=== PATIENT | female | born 1985 ===

== ENCOUNTER 2016-11-10 19:20 | Emergency (ER) | payer OTHER ==
[2016-11-10] MEDS: Lactated Ringer's 1,000 ML IV SCH ×2 (20:03→21:00)
[2016-11-10 20:06] VITALS: TEMP 100.4
[2016-11-10 20:17] VITALS: BMI 32.9
--- NOTE | 2016-11-10 20:35 | OBHP ---
Datetime: 11/10/2016 19:54 IP Adm Impression: , intrauterine IP Admit Plan: Observation/Evaluation Admit Comment, IP Provider: Pt is a 31 yo [id number] edc 12/27 who presents with c/o pelvic pressure and b ack pain today. She states she has had a cough with yellow sputum for 3days and she has been taking robitussin dm prescribed by dr. stout. she denies head/sinus congestion. she denies ctxs, pprom , bleeding or decreased fm. she denies n/v or knowing she has a fever until presenttion to day. obhx: cd x2 nkda allergy: crab and lobster shx: denies etoh, tobaccco or drug use pmhx: denies medic: pnv; robistussin dm I: 33.2wks Fever uri P: IV hydration Tylenol u/a, cbc, cmp, ffn pt d/w dr. stout Pelvic Type - PN: Inadequate Extremities - PN: Normal Abdomen - PN: Normal Back - PN: Normal Lungs - PN: Normal Neurologic - PN: Normal HEENT - PN: Normal General - PN: Normal FHR - Baseline A Provider: 180 Membranes, Provider: Intact Contraction Comments Provider: q2-6min q3-6min Gestation - Est Wks by US: 33.2 EGA AdmitDate IP: 33.2 Vital Signs Provider: Reviewed IP Chief Complaint: Maternal discomfort NICHD Variability Prov Fetus A: Moderate 6-25bpm NICHD Accel Fetus A IP Provider: 15X15 FHR Category Provider Fetus A: Category I NICHD Decel Fetus A IP Provider: None Dilatation, Provider: 0 Effacement, Provider: 0 Station, Provider: -4 Genitourinary Exam: Normal
[2016-11-10 20:48] LABS: BASO % 0.2 % (0.0-2.0); EOS # 0.1 K/uL (0.0-0.7); EOS % 0.5 % (0.0-4.0); HEMATOCRIT 32.5 % (34.0-47.0); LYMPH % 6.9 % (20.0-40.0); MEAN CELL VOLUME 86.5 fl (81.0-99.0); MEAN CORPUSCULAR HEMOGLOBIN 27.3 pg (27.0-31.0); MEAN CORPUSCULAR HGB CONC 31.5 g/dL (33.0-37.0); MEAN PLATELET VOLUME 7.8 fl (7.2-11.7); MONO # 1.1 K/uL (0.0-0.8); MONO % 7.9 % (0.0-10.0); NEUT % 84.5 % (50.0-75.0); PLATELET COUNT 274 K/uL (130-400); RED CELL DISTRIBUTION WIDTH 14.6 % (11.5-14.5); WHITE BLOOD COUNT 14.3 K/uL (4.8-10.8)
[2016-11-10 20:59] LABS: ALB/GLOB RATIO 1.1 (1.0-2.1); ALKALINE PHOSPHATASE 130 U/L (38-126); ALT/SGPT 29 U/L (9-52); AST/SGOT 25 U/L (14-36); BILIRUBIN,TOTAL 0.5 mg/dl (0.2-1.3); BLOOD UREA NITROGEN 8 mg/dl (7-17); CALCIUM 9.5 mg/dL (8.4-10.2); CARBON DIOXIDE 20 mmol/L (22-30); CHLORIDE 101 mmol/L (98-107); GFR AFRICAN-AMERICAN > 60; GLUCOSE,RANDOM 86 mg/dL (65-105); POTASSIUM 3.6 MMOL/L (3.6-5.0); SODIUM 132 mmol/l (132-148); TOTAL PROTEIN 7.6 G/DL (6.3-8.2)
[2016-11-10] MEDS ORDERED: Lactated Ringer's 1,000 ML IV SCH (22:00)
[2016-11-10 22:11] LABS: RBC URINE 3 /hpf (0-3); URINE BACTERIA RARE (<OCC); URINE BILIRUBIN NEGATIVE (NEGATIVE); URINE BLOOD NEGATIVE (NEGATIVE); URINE COLOR YELLOW (YELLOW); URINE GLUCOSE (UA) NEG (Normal); URINE KETONE 80 mg/dL (NEGATIVE); URINE LEUKOCYTE ESTERASE NEG Leu/uL (Negative); URINE PROTEIN NEGATIVE (NEGATIVE); URINE UROBILINOGEN 0.2-1.0 mg/dL (0.2-1.0); WBC URINE 1 /hpf (0-5)
[2016-11-10 23:53] LABS: NEUTROPHIL 84 % (42-75); TOTAL CELLS COUNTED 100
[2016-11-11] MEDS ORDERED: cefTRIAXone (Rocephin) 1 gm Inj ONE (01:42)
== END 2016-11-10 23:45 | disposition still patient (30) ==
LOC: H.EROB2 19:20
DX: O26.93 Pregnancy related conditions, unspecified, third trimester (principal); J06.9 Acute upper respiratory infection, unspecified; R50.9 Fever, unspecified; Z3A.33 33 weeks gestation of pregnancy; Z87.59 Personal history of other complications of pregnancy, childbirth and the puerperium

== ENCOUNTER 2016-11-10 23:51 | Observation (INO) | payer OTHER ==
[2016-11-10 23:51] VITALS: BMI 32.9
[2016-11-11] MEDS ORDERED: Albuterol 0.083% Inhal Sol (2.5 mg/3 mL) UD INH STA (00:08)
[2016-11-11] MEDS ORDERED: Albuterol 0.083% Inhal Sol (2.5 mg/3 mL) UD ONE (00:18)
--- NOTE | 2016-11-11 01:41 | ED PDOC ---
HPI: CCC, URI, Sore Throat Time Seen by Provider: 11/11/16 00:02 Chief Complaint (Nursing): Abdominal Pain Chief Complaint (Provider): Abdominal Pain History Per: Patient History/Exam Limitations: no limitations Onset/Duration Of Symptoms: Days (x2 days) Current Symptoms Are (Timing): Still Present Additional Complaint(s): 31 y/o female with a past medical history of , about 33 weeks , presents to the emergency department with a complaint of a productive cough, sputum (yellow/green), congestion, fever, and shortness of breath x2 days. Associated with pelvic pressure. Patient was seen by OB ED, cleared, and sent down to ER for further evaluation of cough. Reports taking Tylenol for fever. Denies nausea and diarrhea. Past Medical History Reviewed: Historical Data, Nursing Documentation, Vital Signs Vital Signs: Last Vital Signs Temp 98.5 F 11/11/16 04:12 Pulse 107 H 11/11/16 04:12 Resp 20 11/11/16 04:12 BP 102/56 L 11/11/16 04:12 Pulse Ox 97 11/11/16 04:12 - Medical History PMH: No Chronic Diseases - Surgical History Surgical History: No Surg Hx - Family History Family History: States: Unknown Family Hx - Social History Current smoker - smoking cessation education provided: No Alcohol: None Drugs: Denies - Home Medications Home Medications: Ambulatory Orders Medication Instructions Recorded No Known Home Med 11/11/16 - Allergies Allergies/Adverse Reactions: Allergies Allergy/AdvReac Type Severity Reaction Status Date / Time crab Allergy ANAPHYLAXIS Verified 11/10/16 23:55 Review of Systems ROS Statement: Except As Marked, All Systems Reviewed And Found Negative Constitutional: Positive for: Fever ENT: Positive for: Nose Congestion Respiratory: Positive for: Cough, Shortness of Breath, Sputum (yellow/green) Gastrointestinal: Negative for: Nausea, Diarrhea Genitourinary Female: Positive for: Pelvic Pain (Pressure) Physical Exam - Reviewed Nursing Documentation Reviewed: Yes Vital Signs Reviewed: Yes - Physical Exam Appears: Positive for: Non-toxic, No Acute Distress Head Exam: Positive for: ATRAUMATIC, NORMOCEPHALIC Skin: Positive for: Normal Color, Warm, Dry Neck: Positive for: Normal, Supple Cardiovascular/Chest: Positive for: Regular Rate, Rhythm. Negative for: Murmur Respiratory: Positive for: Rhonchi (b/l). Negative for: Accessory Muscle Use, Respiratory Distress Gastrointestinal/Abdominal: Positive for: Normal Exam (Belly is gravid. Fundal height approx. 30 weeks. ), Soft. Negative for: Tenderness Extremity: Positive for: Normal ROM. Negative for: Pedal Edema Neurologic/Psych: Positive for: Alert, Oriented - ECG O2 Sat by Pulse Oximetry: 100 (RA) Pulse Ox Interpretation: Normal Medical Decision Making Medical Decision Making: Time: 00:02 Initial impression: 31 y/o female with productive cough and fever in setting of (third trimester ) Initial plan: --Chest Two Views (PA/LAT) (RAD) --Albuterol 2.5 mg INH Stat --Zithromax 500 mg PO --Rocephin 1 gm IV --Peak Flow Pre/Post TX --Revaluation --Labs reviewed in [place] [id number] which may represent leukocytosis of Time: 01:22 --Chest X-ray FINDINGS: Heart and mediastinum: The heart is enlarged. Mediastinal and hilar contours are unremarkable Vascularity:There is pulmonary vascular congestion. Lungs: There is no focal consolidation. Pleural spaces: There no definite effusions. Bony structures:There are no acute osseous abnormalities IMPRESSION: Cardiomegaly and vascular congestion Time: 01:38 --Admitted to Telemetry observation for CHF and Bronchitis. --Spoke to Dr. Guerra and Dr Leo for admission --Dr. Guerra advised that Lasix administration should be avoided unless patient is in D.I.R.E Time: 01:46 --B-Type Natriuretic Peptide --Lact Acid, Plasma Stat --Blood Culture Stat Scribe Attestation: Documented by Kristie Hunter, acting as a scribe for John Woodruff MD. Provider Scribe Attestation: All medical record entries made by the Scribe were at my direction and personally dictated by me. I have reviewed the chart and agree that the record accurately reflects my personal performance of the history, physical exam, medical decision making, and the department course for this patient. I have also personally directed, reviewed, and agree with the discharge instructions and disposition. Disposition - Clinical Impression Clinical Impression: Bronchitis - Disposition Disposition Time: 01:30 Condition: STABLE
[2016-11-11] MEDS ORDERED: Albuterol-Ipratrop 3 mg / 0.5 (3 ml) UD INH PRN (02:01)
--- NOTE | 2016-11-11 02:08 | CP.PCM.HP ---
History of Present Illness - History of Present Illness History of Present Illness: CC: SOB, ?fevers HPI: This is a 31 y/o female, 33 weeks , who comes to the ER with SOB and fever. Apparently she was admitted to OB ER earlier for these symptoms and received 2 L of IVF over a short period of time and became short of breath soon after. As a result she was sent down to the ER for further w/u. She was started on Abx for RTI and was noted on CXR to have b/l interstitial markings as well as an enlarged heart. Patient Denies CP. but has mild sob which is new. Denies n /v/d. Denies prdouctive cough. ROS: 14 systems reviewed, negative other than HPI MHx: None SHx: C-sec x 2 in past Allergies: NKDA Medications: None Family Hx: Asthma in father Social Hx: Lives with family, denies EtOH or tobacco Present on Admission - Present on Admission Any Indicators Present on Admission: No Past Patient History - Past Social History Alcohol: None Drugs: Denies - PSYCHIATRIC Hx Substance Use: No - SURGICAL HISTORY Hx Surgeries: Yes Hx Section: Yes (x2) Meds Home Medications: Home Medication List Medication Instructions Recorded Confirmed Type Albuterol HFA [Ventolin HFA 90 1 - 2 puff IH Q6 PRN #1 inhaler 11/11/16 Rx mcg/actuation (8 g)] Azithromycin [Zithromax] 250 mg PO QAM #1 pkg 11/11/16 Rx Allergies/Adverse Reactions: Allergies Allergy/AdvReac Type Severity Reaction Status Date / Time crab Allergy ANAPHYLAXIS Verified 11/10/16 23:55 Physical Exam - Constitutional Appears: No Acute Distress - Head Exam Head Exam: ATRAUMATIC, NORMOCEPHALIC - Eye Exam Eye Exam: EOMI, PERRL - ENT Exam ENT Exam: Mucous Membranes Moist - Neck Exam Neck exam: Positive for: Full Rom - Respiratory Exam Respiratory Exam: Rales, NORMAL BREATHING PATTERN - Cardiovascular Exam Cardiovascular Exam: REGULAR RHYTHM, +S1, +S2 - GI/Abdominal Exam GI & Abdominal Exam: Normal Bowel Sounds, Soft Additional comments: Gravid uterus - Extremities Exam Extremities exam: Positive for: full ROM, normal inspection - Neurological Exam Neurological exam: Alert, CN II-XII Intact, Oriented x3 - Psychiatric Exam Psychiatric exam: Normal Affect, Normal Mood - Skin Skin Exam: Dry, Warm Results - Vital Signs Recent Vital Signs: Last Vital Signs Temp 99.9 F H 11/10/16 23:52 Pulse 105 H 11/10/16 23:52 Resp 16 11/10/16 23:52 BP 106/54 L 11/10/16 23:52 Pulse Ox 100 11/11/16 01:53 - Labs Labs: Laboratory Results - last 24 hr 11/11/16 01:12 Influenza Typ A,B (EIA) Negative for flu a/b - Imaging and Cardiology Chest x-ray Status: Image reviewed by me (volume overload/intst markings, enlarged heart) Assessment & Plan (1) SOB (shortness of breath) Assessment and Plan: 31 y/o female 33 weeks who presents with SOB and fever. Noted to have CHF in setting of recent fluid challenge. 1) CHF -- acute onset, likely due to acute overhydration -Echo for AM -EKG -Patient will autodiurese for now, avoid lasix per OBGYN 2) Respiratory infection, possible PNA -Cont Ceft, Azith IV for now -Duonebs PRN -Tylenol for fever 3) Ambulation for DVT PPx Status: Acute (2) and not yet delivered in third trimester Status: Acute (3) CHF (congestive heart failure) Status: Acute (4) DVT prophylaxis Status: Acute
[2016-11-11] MEDS ORDERED: Nasal Spray(Ocean spray) NAS PRN (10:03)
--- NOTE | 2016-11-11 10:23 | RAD ---
HISTORY: cough COMPARISON: No prior study available comparison TECHNIQUE: Chest PA and lateral FINDINGS: LUNGS: Poor inspiration with low lung volumes, crowded bronchovascular markings and mild bibasilar atelectasis. The central pulmonary vasculature is also slightly increased. Rule out mild chronic compensated pulmonary venous congestion. PLEURA: No significant pleural effusion identified. No pneumothorax apparent. CARDIOVASCULAR: Heart appears enlarged. TheNormal. OSSEOUS STRUCTURES: No significant abnormalities. VISUALIZED UPPER ABDOMEN: Normal. OTHER FINDINGS: None. IMPRESSION: Poor inspiration with low lung volumes, crowded bronchovascular markings and mild bibasilar atelectasis. The central pulmonary vasculature is also slightly increased. Rule out mild chronic compensated pulmonary venous congestion.
[2016-11-11] MEDS: Azithromycin 500 MG in Sodium Chloride 0.9% 250 ML IVPB SCH (10:28)
--- NOTE | 2016-11-11 11:56 | CP.PCM.PN ---
Subjective - Date & Time of Evaluation Date of Evaluation: 11/11/16 Time of Evaluation: 11:53 - Subjective Subjective: Still with some SOB and congestion Denies C/F and refers FM present and no UC, ROM or vaginal bleeding. Objective - Vital Signs/Intake and Output Vital Signs (last 24 hours): Temp Pulse Resp BP Pulse Ox 98.2 F 101 H 18 103/64 96 11/11/16 08:09 11/11/16 09:00 11/11/16 08:09 11/11/16 08:09 11/11/16 08:09 - Medications Medications: Current Medications Acetaminophen (Tylenol 325mg Tab) 650 mg PO Q6 PRN PRN Reason: Pain, Mild (1-3) Last Admin: 11/11/16 02:20 Dose: 650 mg Acetaminophen (Tylenol 325mg Tab) 650 mg PO Q6 PRN PRN Reason: Fever >100.4 F Albuterol/Ipratropium (Duoneb 3 Mg/0.5 Mg (3 Ml) Ud) 3 ml INH RQ6 PRN PRN Reason: Shortness of Breath Azithromycin 500 mg/ Sodium (Chloride) 250 mls @ 250 mls/hr IVPB DAILY LYNNE Last Admin: 11/11/16 10:28 Dose: 250 mls/hr Ceftriaxone Sodium 1 gm/ (Sodium Chloride) 100 mls @ 100 mls/hr IVPB DAILY [facility] Last Admin: 11/11/16 10:29 Dose: 100 mls/hr Sodium Chloride ([place] Nasal [place]) 2 sprays GABRIELLA Q4 PRN PRN Reason: Nasal congestion Last Admin: 11/11/16 10:29 Dose: 2 sprays - Constitutional Appears: No Acute Distress - Head Exam Head Exam: ATRAUMATIC - Neck Exam Neck Exam: Full ROM - GI/Abdominal Exam Additional comments: gravid fundus NT FCA(+) at 158 b/m by maximiliano - Extremities Exam Additional comments: no calf tenderness, no leg edema - Neurological Exam Neurological Exam: Awake, Oriented x3 Assessment and Plan - Assessment and Plan (Free Text) Assessment: on IV antibiotics Plan: Continue present management and will try to get NST today.
[2016-11-11 18:43] LABS: ALKALINE PHOSPHATASE 101 U/L (38-126); ALT/SGPT 27 U/L (9-52); AST/SGOT 17 U/L (14-36); BILIRUBIN,TOTAL 0.3 mg/dl (0.2-1.3); BLOOD UREA NITROGEN 9 mg/dl (7-17); CALCIUM 8.7 mg/dL (8.4-10.2); CARBON DIOXIDE 22 mmol/L (22-30); CHLORIDE 105 mmol/L (98-107); GFR AFRICAN-AMERICAN > 60; GLUCOSE,RANDOM 118 mg/dL (65-105); POTASSIUM 3.4 MMOL/L (3.6-5.0); SODIUM 136 mmol/l (132-148); TOTAL PROTEIN 6.6 G/DL (6.3-8.2)
[2016-11-11 18:51] LABS: BASO % 0.2 % (0.0-2.0); EOS # 0.1 K/uL (0.0-0.7); EOS % 0.7 % (0.0-4.0); HEMATOCRIT 27.8 % (34.0-47.0); LYMPH # 1.3 K/uL (1.0-4.3); LYMPH % 8.8 % (20.0-40.0); MEAN CELL VOLUME 85.9 fl (81.0-99.0); MEAN CORPUSCULAR HEMOGLOBIN 28.4 pg (27.0-31.0); MEAN CORPUSCULAR HGB CONC 33.1 g/dL (33.0-37.0); MEAN PLATELET VOLUME 7.9 fl (7.2-11.7); MONO # 0.8 K/uL (0.0-0.8); MONO % 5.5 % (0.0-10.0); NEUT # 12.5 K/uL (1.8-7.0); NEUT % 84.8 % (50.0-75.0); PLATELET COUNT 267 K/uL (130-400); RED CELL DISTRIBUTION WIDTH 14.7 % (11.5-14.5); WHITE BLOOD COUNT 14.8 K/uL (4.8-10.8)
[2016-11-11] MEDS ORDERED: Potassium Chloride 20 mEq ER Tab PO ONE (19:10)
[2016-11-11 20:44] LABS: EOSINOPHIL 1 % (0-7); NEUTROPHIL 84 % (42-75); TOTAL CELLS COUNTED 100
[2016-11-11 20:45] LABS: GIANT PLATELETS PRESENT; LARGE PLATELETS PRESENT
[2016-11-12 05:22] VITALS: RESP 18; TEMP 97.8
[2016-11-12 08:11] VITALS: BP 100/61; PULSE 87; O2SAT 96
[2016-11-12] MEDS: Azithromycin 500 MG in Sodium Chloride 0.9% 250 ML IVPB SCH (08:39)
[2016-11-12 09:42] LABS: BASO # 0.1 K/uL (0.0-0.2); BASO % 0.6 % (0.0-2.0); EOS # 0.2 K/uL (0.0-0.7); EOS % 2.1 % (0.0-4.0); HEMATOCRIT 26.9 % (34.0-47.0); LYMPH # 1.3 K/uL (1.0-4.3); LYMPH % 13.2 % (20.0-40.0); MEAN CELL VOLUME 86.1 fl (81.0-99.0); MEAN CORPUSCULAR HEMOGLOBIN 28.5 pg (27.0-31.0); MEAN CORPUSCULAR HGB CONC 33.1 g/dL (33.0-37.0); MEAN PLATELET VOLUME 7.6 fl (7.2-11.7); MONO # 0.7 K/uL (0.0-0.8); MONO % 7.7 % (0.0-10.0); NEUT # 7.3 K/uL (1.8-7.0); NEUT % 76.4 % (50.0-75.0); RED CELL DISTRIBUTION WIDTH 14.6 % (11.5-14.5); WHITE BLOOD COUNT 9.6 K/uL (4.8-10.8)
--- NOTE | 2016-11-12 09:56 | CP.PCM.DIS ---
Provider - Provider Date of Admission: 11/11/16 01:38 Attending physician: Karrie Leo MD Consults: OB: Dr Guerra Time Spent in preparation of Discharge (in minutes): 25 Diagnosis - Discharge Diagnosis (1) Pulmonary vascular congestion Status: Acute (2) Acute bronchitis Status: Acute (3) Third trimester at less than 36 weeks Status: Acute (4) Anemia affecting in third trimester Status: Acute (5) DVT prophylaxis Status: Acute Hospital Course - Lab Results Lab Results: Micro Results 11/11/16 01:50 Blood-Venous Blood Culture - Preliminary NO GROWTH AFTER 24 HOURS Most Recent Lab Values WBC 9.6 K/uL (4.8-10.8) 11/12/16 09:34 RBC 3.12 Mil/uL (3.80-5.20) L 11/12/16 09:34 Hgb 8.9 g/dL (12.0-16.0) L 11/12/16 09:34 Hct 26.9 % (34.0-47.0) L 11/12/16 09:34 MCV 86.1 fl (81.0-99.0) 11/12/16 09:34 MCH 28.5 pg (27.0-31.0) 11/12/16 09:34 MCHC 33.1 g/dL (33.0-37.0) 11/12/16 09:34 RDW 14.6 % (11.5-14.5) H 11/12/16 09:34 Plt Count 256 K/uL (130-400) 11/12/16 09:34 MPV 7.6 fl (7.2-11.7) 11/12/16 09:34 Neut % (Auto) 76.4 % (50.0-75.0) H 11/12/16 09:34 Lymph % (Auto) 13.2 % (20.0-40.0) L 11/12/16 09:34 [place] % (Auto) 7.7 % (0.0-10.0) 11/12/16 09:34 Eos % (Auto) 2.1 % (0.0-4.0) 11/12/16 09:34 Baso % (Auto) 0.6 % (0.0-2.0) 11/12/16 09:34 Neut # 7.3 K/uL (1.8-7.0) H 11/12/16 09:34 Lymph # 1.3 K/uL (1.0-4.3) 11/12/16 09:34 [place] # 0.7 K/uL (0.0-0.8) 11/12/16 09:34 Eos # 0.2 K/uL (0.0-0.7) 11/12/16 09:34 Baso # 0.1 K/uL (0.0-0.2) 11/12/16 09:34 Neutrophils % (Manual) 84 % (42-75) H 11/11/16 18:00 Band Neutrophils % 4 % (0-2) H 11/11/16 18:00 Lymphocytes % (Manual) 7 % (20-50) L 11/11/16 18:00 Monocytes % (Manual) 4 % (0-10) 11/11/16 18:00 Eosinophils % (Manual) 1 % (0-7) 11/11/16 18:00 Platelet Estimate Normal (NORMAL) 11/11/16 18:00 Large Platelets Present 11/11/16 18:00 Giant Platelets Present 11/11/16 18:00 Hypochromasia (manual) Slight 11/11/16 18:00 Anisocytosis (manual) Slight 11/11/16 18:00 Sodium 136 mmol/l (132-148) 11/11/16 18:00 Potassium 3.4 MMOL/L (3.6-5.0) L 11/11/16 18:00 Chloride 105 mmol/L (98-107) 11/11/16 18:00 Carbon Dioxide 22 mmol/L (22-30) 11/11/16 18:00 Anion Gap 12 (10-20) 11/11/16 18:00 BUN 9 mg/dl (7-17) 11/11/16 18:00 Creatinine 0.5 mg/dL (0.7-1.2) L 11/11/16 18:00 Est GFR ( Amer) > 60 11/11/16 18:00 Est GFR (Non-Af Amer) > 60 11/11/16 18:00 Random Glucose 118 mg/dL (65-105) H 11/11/16 18:00 Lactic Acid 1.1 MMOL/L (0.7-2.1) 11/11/16 02:09 Calcium 8.7 mg/dL (8.4-10.2) 11/11/16 18:00 Total Bilirubin 0.3 mg/dl (0.2-1.3) 11/11/16 18:00 AST 17 U/L (14-36) 11/11/16 18:00 ALT 27 U/L (9-52) 11/11/16 18:00 Alkaline Phosphatase 101 U/L (38-126) 11/11/16 18:00 NT-Pro-B Natriuret Pep 49.1 pg/ml (0-450) 11/11/16 02:09 Total Protein 6.6 G/DL (6.3-8.2) 11/11/16 18:00 Albumin 3.3 g/dL (3.5-5.0) L 11/11/16 18:00 Globulin 3.3 gm/dL (2.2-3.9) 11/11/16 18:00 Albumin/Globulin Ratio 1.0 (1.0-2.1) 11/11/16 18:00 Influenza Typ A,B (EIA) Negative for flu a/b (NEGATIVE) 11/11/16 01:12 - Hospital Course Hospital Course: 31 y/o lady , 33 wks AOG, was admitted because of dyspnea, found to have Pulm Vasc Congestion on CXR after she receieved 2 liters of IVF hydration. Pt also had been coughing and had fever for the past 3 days . (1) Pulmonary vascular congestion Status: Acute Fluid overload afetr she receieved 2 liters of IVF at the OB ED Pt diuresed on her own, monitored in Tele (2) Acute bronchitis Status: Acute Pt had cough, low grade fever CXR ; no infiltrate empirically started on IV ceftriaxone and Azithro -received 3 days of IV abx her sxs improved- will d/c on PO Omnicef and Azithro (3) Third trimester at less than 36 weeks Status: Acute + movement and heart tone probation manager consulted (4) Anemia affecting in third trimester Status: Acute noted anemia started on Iron , FA and MVI (5) DVT prophylaxis SCD ambulation Discharge Exam - Head Exam Head Exam: ATRAUMATIC, NORMAL INSPECTION, NORMOCEPHALIC - Eye Exam Eye Exam: EOMI, Normal appearance, PERRL Pupil Exam: NORMAL ACCOMODATION - ENT Exam ENT Exam: Mucous Membranes Moist, Normal External Ear Exam - Neck Exam Neck exam: Full Rom - Respiratory Exam Respiratory Exam: NORMAL BREATHING PATTERN. absent: Rales, Wheezes, Respiratory Distress - Cardiovascular Exam Cardiovascular Exam: REGULAR RHYTHM, +S1, +S2. absent: JVD - GI/Abdominal Exam GI & Abdominal Exam: Normal Bowel Sounds, Soft. absent: Tenderness - Extremities Exam Extremities exam: normal capillary refill, pedal pulses present Additional comments: no pedal edema - Back Exam Back exam: FULL ROM, NORMAL INSPECTION, paraspinal tenderness. absent: CVA tenderness (L), CVA tenderness (R) - Neurological Exam Neurological exam: Alert, CN II-XII Intact, Normal Gait, Oriented x3, Reflexes Normal - Psychiatric Exam Psychiatric exam: Normal Affect, Normal Mood - Skin Skin Exam: Dry, Normal Color, Warm Discharge Plan - Discharge Medications Prescriptions: Azithromycin [Z-Ryan] 250 mg PO DAILY #6 tab Cefdinir [Omnicef] 300 mg PO BID #14 cap Ferrous Sulfate [Feosol] 325 mg PO BID #60 tab Multivit/Folic Acid/I [] 1 tab PO DAILY #30 tab - Follow Up Plan Condition: GOOD Disposition: HOME/ ROUTINE Instructions: Acute Bronchitis (ED) Additional Instructions: ff up with PMD brigida appt with Dr Guerra in 1 wk Referrals: Darwin Guerra MD [Family Provider] -
[2016-11-12 10:09] LABS: BLOOD UREA NITROGEN 10 mg/dl (7-17); CALCIUM 8.7 mg/dL (8.4-10.2); CARBON DIOXIDE 21 mmol/L (22-30); CHLORIDE 107 mmol/L (98-107); GFR AFRICAN-AMERICAN > 60; GLUCOSE,RANDOM 107 mg/dL (65-105); POTASSIUM 3.8 MMOL/L (3.6-5.0); SODIUM 136 mmol/l (132-148)
[2016-11-13] MEDS ORDERED: Prenatal Multivit/Folic Acid/Iron Tab PO SCH (09:00)
--- NOTE | 2016-11-14 10:15 | CARD ---
APPROVED REPORT EKG Measurement Heart [id number] SD [id number] <Conclusion> Sinus tachycardia Otherwise normal ECG
== END 2016-11-12 12:23 | disposition home or self-care (01) ==
LOC: H.ER 23:51 → H.ERHOLD 11-11 01:38 → H.TEL 11-11 03:52
PROVIDERS: ADMIT Internal Medicine; ATTEND Internal Medicine
DX: O99.513 Diseases of the respiratory system complicating pregnancy, third trimester (principal); Z3A.33 33 weeks gestation of pregnancy; I50.9 Heart failure, unspecified; O99.013 Anemia complicating pregnancy, third trimester; D64.9 Anemia, unspecified; J20.9 Acute bronchitis, unspecified

== ENCOUNTER 2016-12-23 07:06 | Inpatient (IN) | payer OTHER ==
[2016-12-23 07:33] VITALS: BMI 34.4
[2016-12-23] MEDS ORDERED: Lactated Ringer's 1,000 ML IV SCH ×2 (07:45→19:00)
[2016-12-23] MEDS ORDERED: cefOXitin Sodium 1 GM in Sodium Chloride 0.9% 100 ML IVPB ONE (07:54)
[2016-12-23] MEDS ORDERED: Oxytocin 30 units/LR 500ML 30 U/500 ML BAG IV ONE ×2 (08:03→14:05)
[2016-12-23 08:21] VITALS: BP 107/71; PULSE 80; RESP 17; TEMP 98.5; O2SAT 97
[2016-12-23 08:54] LABS: BASO % 0.5 % (0.0-2.0); EOS # 0.1 K/uL (0.0-0.7); EOS % 1.8 % (0.0-4.0); HEMOGLOBIN 12.1 g/dL (12.0-16.0); LYMPH # 1.5 K/uL (1.0-4.3); LYMPH % 19.3 % (20.0-40.0); MEAN CELL VOLUME 86.6 fl (81.0-99.0); MEAN CORPUSCULAR HGB CONC 33.5 g/dL (33.0-37.0); MEAN PLATELET VOLUME 8.1 fl (7.2-11.7); MONO # 0.7 K/uL (0.0-0.8); MONO % 8.8 % (0.0-10.0); NEUT # 5.3 K/uL (1.8-7.0); NEUT % 69.6 % (50.0-75.0); NRBC % 0.1 % (0.0-0.0); RBC 4.18 Mil/uL (3.80-5.20); RED CELL DISTRIBUTION WIDTH 17.5 % (11.5-14.5); WHITE BLOOD COUNT 7.6 K/uL (4.8-10.8)
[2016-12-23] MEDS ORDERED: Phenylephrine 10 mg/ml Inj ONE (09:24)
[2016-12-23] MEDS ORDERED: Dexamethasone 4 mg/1 ml ONE (09:24)
[2016-12-23] MEDS ORDERED: Morphine 1 mg/ml preservative-free Inj(Duramorph) ONE (09:24)
[2016-12-23] MEDS ORDERED: ePHEDrine 50 mg/ml Inj ONE (09:26)
--- NOTE | 2016-12-23 09:54 | OBADHP ---
Datetime: 12/23/2016 09:47 Admit Comment, IP Provider: term uneventful course previous section ,multiparity admitted for delivery and tubal ligation Pelvic Type - PN: Adequate Extremities - PN: Normal Abdomen - PN: Normal Back - PN: Normal Breast - PN: Normal Lungs - PN: Normal Heart - PN: Normal Thyroid - PN: Normal Neurologic - PN: Normal HEENT - PN: Normal General - PN: Normal FHR - Baseline A Provider: 150 Gestation - Est Wks by US: 39+ Vital Signs Provider: Reviewed; Within Normal Limits IP Chief Complaint: Uterine contractions; Scheduled Section NICHD Variability Prov Fetus A: Moderate 6-25bpm NICHD Accel Fetus A IP Provider: 10X10 FHR Category Provider Fetus A: Category I NICHD Decel Fetus A IP Provider: None Dilatation, Provider: 0 Effacement, Provider: 25 Station, Provider: -3 Genitourinary Exam: Normal DTRs - PN: Normal EGA AdmitDate IP: 39.3 IP Adm Impression: Term, intrauterine IP Admit Plan: Admit to unit Datetime: 11/10/2016 19:54 Membranes, Provider: Intact Contraction Comments Provider: q2-6min q3-6min
[2016-12-23] MEDS ORDERED: Morphine 1 mg/ml preservative-free Inj(Duramorph) IT ONE ×2 (10:15→15:56)
[2016-12-23] MEDS ORDERED: DiphenhydrAMINE 50 mg/ml Inj IVP PRN ×2 (11:48→15:56)
[2016-12-23] MEDS ORDERED: Oxycodone/Acetaminophen 5/325 mg Tab PO PRN ×5 (12:57→15:56)
--- NOTE | 2016-12-23 15:27 | OBDS ---
DELIVERY PERSONNEL Delivery Doctor: Meghan Dixon MD Brim Buster: Noni Quinn RN/Negra Byers RN Anesthesiologist: Rylee Stephenson MD MATERNAL INFORMATION Delivery Anesthesia: Spinal Medications in Delivery: pitocin 30 units/500ml lr Estimated Blood Loss (ml): 800 Placenta Cultured: No Maternal Complications: None Provider Comments: delivery of live baby girl 9/9 clear fluid cord wiyh 3 vessels placenta int act tubes and ovaries wnl bilateral tubal ligation LABOR SUMMARY EDC: 12/27/2016 00:00 No. Babies in Womb: 1 Attempted: No LABOR INFORMATION Reason for Induction: Not Applicable Oxytocin: N/A Group B Beta Strep: Negative Antibiotics # of Doses: 1 Steroids Given: None Reason Steroids Not Administered: Not Applicable MEMBRANES Membranes Rupture Method: Artificial Amniotic Fluid Color: Light Meconium Amniotic Fluid Amount: Moderate Amniotic Fluid Odor: Normal STAGES OF LABOR Stage 3 hrs: 0 Stage 3 min: 1 VAGINAL DELIVERY Episiotomy: None Laceration Extension: N/A Laceration Type: None Laceration Repair: Not Applicable CSECTION DELIVERY Primary Indication: Repeat Elective Secondary Indication: N/A CSection Urgency: Non Elective CSection Incidence: Repeat Labor: Labor Elective: Nonelective CSection Incision: Lower Uterine Transverse Sterilization Procedure: Josef BABY A INFORMATION Infant Delivery Date/Time: 12/23/2016 11:13 Method of Delivery: Born in Route : No : N/A Forceps: N/A Vacuum Extraction: Successful Shoulder Dystocia : No ASSISTED DELIVERY BABY A Vacuum Number of Pulls: 1 Vacuum Number of PopOffs: 0 Reduce Pressure btwn Ctx: n/a Vacuum Strategic Manager: kiwi SHOULDER DYSTOCIA BABY A Delivery Date/Time: 12/23/2016 11:13 PRESENTATION/POSITION BABY A Presentation: Cephalic Cephalic Presentation: Vertex Breech Presentation: N/A PLACENTA INFORMATION BABY A Placenta Delivery Time : 12/23/2016 11:14 Placenta Method of Delivery: Manual Removal Placenta Status: Delivered SCORES BABY A Heart Rate 1 min: >100 bpm Resp Effort 1 min: Good Cry Reflex Irritability 1 min: Cough or Sneeze or Pulls Away Muscle Tone 1 min: Active Motion Color 1 min: Body [place], Extremities Blue Resuscitation Effort 1 min: N/A SCORE 1 MIN: 9 Heart Rate 5 min: >100 bpm Resp Effort 5 min: Good Cry Reflex Irritability 5 min: Cough or Sneeze or Pulls Away Muscle Tone 5 min: Active Motion Color 5 min: Body [place], Extremities Blue Resuscitation Effort 5 min: N/A SCORE 5 MIN: 9 Resuscitation Effort 10 min: N/A INFANT INFORMATION BABY A Gestational Age at Delivery: 39.3 Gestational Status: Term Infant Outcome : Liveborn Condition : Stable Sex: Female IDENTIFICATION/MEDS BABY A ID Band Location: Right Leg; Right Arm WEIGHT/LENGTH BABY A Infant Birthweight (gms): 4240 Infant Weight (lb): 9 Infant Weight (oz): 6 CORD INFORMATION BABY A No. Cord Vessels: 3 Nuchal Cord : N/A Cord Blood Taken: Yes Suction: Mouth; Nose ASSESSMENT BABY A Infant Complications: None Physical Findings at Delivery: Within Normal Limits Respirations: Appears Normal [place] Inspector/ALS Called : No Care By: Sandy Lopez RN/Dr. Lundy Transferred To: Remains with Mother
[2016-12-23] MEDS ORDERED: Simethicone 80 mg Chewtab PO SCH (16:00)
[2016-12-23] MEDS: Simethicone 80 mg Chewtab PO SCH ×2 (17:07→21:32)
[2016-12-24] MEDS: Lactated Ringer's 1,000 ML IV SCH ×2 (03:38→11:45)
[2016-12-24] MEDS: Simethicone 80 mg Chewtab PO SCH ×4 (04:42→21:35)
[2016-12-24 06:30] LABS: MEAN CELL VOLUME 87.3 fl (81.0-99.0); MEAN CORPUSCULAR HEMOGLOBIN 29.3 pg (27.0-31.0); MEAN CORPUSCULAR HGB CONC 33.5 g/dL (33.0-37.0); RBC 3.41 Mil/uL (3.80-5.20); RED CELL DISTRIBUTION WIDTH 17.2 % (11.5-14.5); WHITE BLOOD COUNT 10.2 K/uL (4.8-10.8)
--- NOTE | 2016-12-24 08:08 | OBPPN ---
Datetime: 12/24/2016 08:04 PP Pain Prov: Within normal limits PP Nausea Prov: Denies PP Flatus Prov: Yes PP BM Prov: No PP Breasts Prov: Normal PP Heart Prov: Normal PP Lungs Prov: Normal PP Abdomen/Uterus Prov: Normal PP Lochia Prov: Normal PP Vulva/Perineum Prov: Normal PP CVA Tenderness Prov: Normal PP Extremities Prov: Normal PP C/S Incision Prov: Normal PP Progress Prov: Normal PP Impression Prov: Normal progression PP Plan Prov: Continue present management PP Progress Note Prov: stable pod 1,dc [place] with assistance, regular diet may shower,pankaj juarez IP PP Procedures: None Vital Signs Provider PP: Reviewed; Within Normal Limits
[2016-12-24] MEDS: Oxycodone/Acetaminophen 5/325 mg Tab PO PRN ×2 (13:39→21:35)
--- NOTE | 2016-12-25 07:40 | OBPPN ---
Datetime: 12/25/2016 07:36 PP Pain Prov: Within normal limits PP Nausea Prov: Denies PP Flatus Prov: Yes PP BM Prov: Yes PP Breasts Prov: Normal PP Heart Prov: Normal PP Lungs Prov: Normal PP Abdomen/Uterus Prov: Normal PP Lochia Prov: Normal PP Vulva/Perineum Prov: Normal PP CVA Tenderness Prov: Normal PP Extremities Prov: Normal PP C/S Incision Prov: Normal PP Progress Prov: Normal PP Impression Prov: Normal progression PP Plan Prov: Continue present management PP Progress Note Prov: stable pod 2 continue present care incision clean and healing IP PP Procedures: None Vital Signs Provider PP: Reviewed; Within Normal Limits
[2016-12-25] MEDS: Simethicone 80 mg Chewtab PO SCH ×3 (09:18→21:18)
[2016-12-26] MEDS: Simethicone 80 mg Chewtab PO SCH ×2 (03:56→11:08)
--- NOTE | 2016-12-26 07:46 | OBDCSUM ---
Datetime: 12/26/2016 07:42 Discharged to, Provider: Home Follow up at, Provider: Disch Instr Activity: May be up to bathroom; May be up for meals; May Shower Disch Instr Diet: Regular Discharge Instructions, Provider: Specific instructions as noted Discharge Diagnosis, Provider: Term Delivered Discharge Time: 12/26/2016 07:42 Follow up in weeks, Provider: 1week Disch Referrals: None Disch Activity Restrictions: No exercising; No lifting; No driving; Minimize walking; Minimize stair -climbing; No sexual activity; Nothing in vagina - [place], tampons, douche Discharge Comment, Provider: pankaj home today rto 1week call office if any problems Contraception after Delivery: Undecided
--- NOTE | 2016-12-31 22:30 | OP ---
PROCEDURE DATE: 12/23/2016 PREOPERATIVE DIAGNOSES: Term , previous section x2, multiparity. POSTOPERATIVE DIAGNOSES: Term , previous section x2, multiparity, severe pelvic adhesions. SURGEON: Darwin Dixon MD LITIGATION PARTNER: Donnell Selby MD ANESTHESIA: Keke Stephenson MD, spinal anesthesia. PROCEDURE: Repeat section and bilateral tubal with cautery and lysis of severe adhesion. DESCRIPTION OF PROCEDURE: With the patient in the supine position under spinal anesthesia, the patient was prepped and draped in the usual sterile manner. Pfannenstiel incision was made down to the fascia in layers. Fascia incised and extended bilaterally. Muscles from the fascia by sharp dissection, after which the muscles opened in the midline with Merlyn clamps. When trying to get into the abdomen, there were severe pelvic and abdominal adhesions, which were lysed sequentially and eventually, we created a space for removing the baby. The baby was removed without any complication and given to health evaluator who resuscitated. After this was done, the uterus was closed in 2 layers maintaining hemostasis. Following this, tubes were ligated bilaterally in Josef fashion, Dr. Selby doing his side and I doing my side. After this was done, the pelvic cavity was irrigated until clean. Following this, the peritoneum was closed with 1 Vicryl. Muscles were re-approximated with 1 Vicryl. Fascia was closed with 1 Vicryl running interlocking stitch starting at and finished in the midline, Dr. Selby doing his half and I am doing my half. After this was done, the subcutaneous layer was closed with 2-0 plain and the skin was closed with james. Dr. Selby was there for the entire procedure and helped to prepare the patient for surgery, also doing his half of opening of the fascia and also helping with dissecting of extensive adhesions. He was there from beginning to the end of the surgery. After this was done, the skin was closed with surgical clips. The patient tolerated the procedure well and was in satisfactory condition on her way to recovery room. Estimated blood loss was about 800 mL. Darwin Dixon MD [facility] # [id number]
== END 2016-12-26 13:15 | disposition home or self-care (01) | DRG 766 ==
LOC: H.EROB2 07:06 → H.EROB 07:32 → H.L&D 07:34 → H.EROB2 07:49 → H.OB/GYN 15:10
PROVIDERS: ADMIT Specialist; ATTEND Specialist
PROC: 10D00Z1 Extraction of Products of Conception, Low, Open Approach (ICD-10-PCS; principal; 2016-12-23)
PROC: 0UB70ZZ Excision of Bilateral Fallopian Tubes, Open Approach (ICD-10-PCS; 2016-12-23)
PROC: 4A1HXCZ Monitoring of Products of Conception, Cardiac Rate, External Approach (ICD-10-PCS; 2016-12-23)
DX: O34.219 Maternal care for unspecified type scar from previous cesarean delivery (principal); Z30.2 Encounter for sterilization; Z3A.39 39 weeks gestation of pregnancy; Z37.0 Single live birth